=== PATIENT | female | born 1945 | race Caucasian/White ===

== ENCOUNTER → 2017-10-01 | Outpatient (CLI) | payer MEDICARE, OTHER ==
[~2017-10-01] MED LIST: COZAAR 50 MG TA50 M2 PO; HYDROCHLOROTH12.5 M1; KEFLEX500 M1; KLOR-CON 1010 MEQ; LIPITOR 20 MG T20 M1 PO; NORVASC10 MG PO; POTASSIUM20 PO; SPIRIVA INH; TOPROL XL50 MG; VITAMIN C PO; VITAMIN D PO; XARELTO20 MG
== END ==
LOC: M.ULTRA 13:04
DX: Z12.31 Encounter for screening mammogram for malignant neoplasm of breast (principal); M81.0 Age-related osteoporosis without current pathological fracture; E07.9 Disorder of thyroid, unspecified; I70.8 Atherosclerosis of other arteries; D73.4 Cyst of spleen; N28.89 Other specified disorders of kidney and ureter; K76.9 Liver disease, unspecified; I10 Essential (primary) hypertension; S32.010D Wedge compression fracture of first lumbar vertebra, subsequent encounter for fracture with routine healing; X58.XXXD Exposure to other specified factors, subsequent encounter

== ENCOUNTER → 2018-02-03 | Outpatient (CLI) | payer MEDICARE, OTHER ==
--- NOTE | 2018-02-11 08:52 | SLEEP ---
[facility], [place] [address] [place] [address] SLEEP STUDY REPORT Name: KORY VENTURA Room: [facility]#: [id number] Admission: 02/03/18 Attend Phys: Kit Lemus Discharge: Date of : 43 Report #: [id number] THIS REPORT FOR: //name// CC: Riana Pelayo This study has been reviewed in its entirety by a board certified sleep specialist DATE OF SERVICE: 02/03/2018 The patient is 72 years old who weighs 150 pounds and is 60 inches tall with a BMI of 29.3. The patient's [place] score was 5. The patient underwent home sleep study performed by [facility]. Total recording time was 485 minutes. During the night study, the patient had 69 obstructive apneas, no central or mixed apneas and 13 hypopneas. The patient's apnea hypopnea index was 10 per hour. No supine sleep was observed. Nocturnal oximetry study revealed an average oxygen saturation of 92% with lowest of 83%. 9.8 minutes were spent in oxygen saturation of less than 90%. EKG monitoring revealed an average heart rate of 56 beats per minute with a maximum of 73 beats per minute. IMPRESSION: 1. Mild sleep apnea-hypopnea syndrome at an AHI of 10 per hour. 2. Mild nocturnal hypoxia secondary to obstructive sleep apnea. RECOMMENDATIONS: 1. Due to low AHI, the patient does not meet the criteria for CPAP initiation. 2. If the patient is clinically symptomatic or has co-morbid conditions, then the patient's mild sleep apnea can be treated with either a trial oral appliance as recommended by the dentist versus a trial of CPAP titration. 3. Weight loss is advised. 4. Avoid [employer] depressants. 5. Cautioned regarding driving until symptoms of sleep apnea resolve with the above recommendations. <ELECTRONICALLY SIGNED> By: Jasper Jefferson MD 02/11/18 [id number] Jefferson MD /nt
== END ==
LOC: M.SLEEPLAB 01-27 15:00
DX: G47.33 Obstructive sleep apnea (adult) (pediatric) (principal); R09.02 Hypoxemia; E55.9 Vitamin D deficiency, unspecified; J43.9 Emphysema, unspecified; I73.9 Peripheral vascular disease, unspecified; R41.89 Other symptoms and signs involving cognitive functions and awareness

== ENCOUNTER → 2018-11-04 | Outpatient (CLI) | payer MEDICARE, OTHER | LOC: M.CT 14:53 | DX: M19.012 Primary osteoarthritis, left shoulder (principal); M75.32 Calcific tendinitis of left shoulder; M75.82 Other shoulder lesions, left shoulder; Z95.820 Peripheral vascular angioplasty status with implants and grafts; Z88.0 Allergy status to penicillin; Z88.8 Allergy status to other drugs, medicaments and biological substances ==

== ENCOUNTER → 2020-06-08 | Outpatient (CLI) | payer MEDICARE, OTHER | LOC: M.CT 05-24 11:00 | PROVIDERS: ATTEND Family Medicine | DX: I67.82 Cerebral ischemia (principal); G40.109 Localization-related (focal) (partial) symptomatic epilepsy and epileptic syndromes with simple partial seizures, not intractable, without status epilepticus; G93.89 Other specified disorders of brain; G31.9 Degenerative disease of nervous system, unspecified ==